=== PATIENT | male | born 1980 | race Caucasian/White ===

== ENCOUNTER 2016-11-18 17:11 | Emergency (ER) | payer MEDICAID ==
[~2016-11-18] VITALS: Ht 175.3 cm; Wt 100.0 kg
[2016-11-18 17:13] VITALS: BP 160/100; PULSE 66; RESP 15; TEMP 98.2; O2SAT 98
--- NOTE | 2016-11-18 17:53 | PD ---
Physical Exam Time Seen by Provider: 17:53 Narrative 36 y/o male here with L wrist pain. Vital signs reviewed. Seen at triage desk. Awaiting bed placement. Data Data Last Documented VS Vital Signs Date Time Temp Pulse Resp B/P Pulse Ox O2 Delivery O2 Flow Rate FiO2 11/18/16 17:13 98.2 66 15 160/100 98 MDM Medical Record Reviewed: Yes Supervised Visit with FRANCESCA: No Brown Knox Nov 18, 2016 17:53
--- NOTE | 2016-11-18 18:47 | PD ---
HPI Chief Complaint: Injury Time Seen by Provider: 18:40 Travel History International Travel<30 days: No Contact w/Intl Traveler<30days: No Traveled to known affect area: No History of Present Illness HPI 36-year-old male presents to the emergency Department with complaint of left wrist pain times to 2-3 days. The pain is coming going on for about a year with re-exacerbation 2 months ago and then in the last 2-3 days. At first the patient denies recent injury or trauma and he changed his story and says he may have injured his hand by slamming his hand down on a bar. Pain is increased with supination and pronation of the hand. 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 Reports pain radiates up his arm at times. Denies paresthesias or loss of sensation to the affected extremity. Reports decreased range of motion at the wrist secondary to pain. Symptoms are mild in severity. Has no other medical complaints. No other modifying factors or associated signs and symptoms. PFSH Social History Tobacco Use: No Allergies-Medications (Allergen,Severity, Reaction): Coded Allergies: Penicillin (Verified Allergy, Unknown, 11/18/16) Reported Meds & Prescriptions Reported Meds & Active Scripts Active Ibuprofen 800 Mg Tab 800 Mg PO Q6HR PRN Review of Systems Except as stated in HPI: all other systems reviewed are Neg Physical Exam Narrative male GENERAL: Well-nourished, well-developed patient, in no acute distress SKIN: Warm and dry. HEAD: Atraumatic. Normocephalic. EYES: Pupils equal and round. No scleral icterus. No injection or drainage. ENT: Mucosa pink and moist. Airway patent. NECK: Trachea midline. CARDIOVASCULAR: Regular rate. RESPIRATORY: No accessory muscle use. GASTROINTESTINAL: Flat. MUSCULOSKELETAL: Left wrist with tenderness on palpation to the medial aspect; without erythema, edema, ecchymosis; mild edema; full range of motion with extension and flexion; decreased range of motion with pronation and supination movements; decreased healthcare administration intern strength; no obvious deformities. Left hand with full range of motion at all joints. Left upper extremity is supple and non- tense with 2+ radial pulse and sensory intact. No obvious deformities. No clubbing. No cyanosis. NEUROLOGICAL: Awake and alert. Oriented 3. No obvious cranial nerve deficits. Motor grossly within normal limits. Normal speech. PSYCHIATRIC: Appropriate mood and affect; insight and judgment normal. Data Data Last Documented VS Vital Signs Date Time Temp Pulse Resp B/P Pulse Ox O2 Delivery O2 Flow Rate FiO2 11/18/16 17:13 98.2 66 15 160/100 98 Orders Wrist, Complete ([id number]) (11/18/16 18:40) Splint Or Brace Apply/Monitor (11/18/16 19:14) Cockup Hand Splint (11/18/16 ) MDM Medical Decision Making Medical Screen Exam Complete: Yes Emergency Medical Condition: Yes Medical Record Reviewed: Yes Differential Diagnosis Carpal Tunnel syndrome, wrist sprain, fracture Narrative Course 36-year-old male with left wrist pain. At first he denied new or recent injury and then he changed his story reporting possible injury. I feel his findings are more consistent with possible carpal tunnel syndrome. I will x-ray the left wrist to rule out fracture. Left wrist x-ray ordered. 1912: Left wrist x-ray concludes: Last 24 hours Impressions Wrist X-Ray 11/18/16 184 Signed Impressions: Service Date/Time: Friday, November 18, 2016 18:50 - CONCLUSION: Unremarkable examination of the left wrist. Isidro Sy MD Velcro wrist splint provided for support. Ibuprofen prescribed for home. Instructed patient to follow up with hand surgeon. Instructed patient to follow up with primary care provider. Patient verbalizes understanding and agreement with treatment plan. Patient is medically cleared and stable for discharge. Discussed reasons to return to the emergency department. Patient agrees with treatment plan. The patients vital signs are stable and the patient is stable for outpatient follow-up and treatment. Patient discharged home, stable and in no acute distress. Diagnosis Primary Impression: Left wrist pain Referrals: Hand Surgeon Primary Care Physician Patient Instructions: Carpal Tunnel Syndrome (ED), General Instructions Departure Forms: Tests/Procedures, Work Release Enter return to work date: Nov 21, 2016 Additional Instructions: Wrist splint for support; can use at night while sleeping Avoid sleeping on your hands to help ease pain and numbness in your wrist and hand Rotate your wrist and stretch your palms and fingers Take a pain reliever, such as Advil, Motrin, ibuprofen, Aleve as needed and as directed Follow-up with primary care provider Return to the emergency department immediately with worsening of symptoms Med/Other Pt SpecificInfo: Prescription(s) given Scripts Ibuprofen 800 Mg Lyg309 Mg PO Q6HR PRN (PAIN) #30 TAB Ref 0 Prov:Mikala Galvan 11/18/16 Disposition: 01 DISCHARGE HOME Condition: Stable Mikala Galvan Nov 18, 2016 18:47
--- NOTE | 2016-11-18 19:07 | RADRPT ---
EXAM DATE/TIME: 11/18/2016 18:50 [facility] COMPARISON: No previous studies available for comparison. INDICATIONS : Left wrist pain. No known injury. MEDICAL HISTORY : None. SURGICAL HISTORY : None. ENCOUNTER: Initial ACUITY: 2 days PAIN SCORE: 8/10 LOCATION: Left upper extremity FINDINGS: Three view examination of the left wrist demonstrates no soft tissue swelling, dislocation, or fractu re. The carpal bones are in normal alignment. The joint spaces are maintained. Bony mineralization is normal. CONCLUSION: Unremarkable examination of the left wrist. Isidro Sy MD on November 18, 2016 at 19:05 Board Certified Radiologist. This report was verified electronically.
[2016-11-18] MEDS ORDERED: IBUP800T23 PO (19:13)
== END 2016-11-18 19:34 | disposition home or self-care (01) ==
LOC: NEPK 17:11
DX: M25.532 Pain in left wrist (principal)
CPT/HCPCS: 73110; 99283; L3908

== ENCOUNTER 2018-01-30 16:46 | Observation (INO) ==
--- NOTE | 2018-01-30 17:10 | ED ---
HPI General Chief Complaint: Chest Pain Stated Complaint: Chest pain/numbness left arm Time Seen by Provider: 01/30/18 17:07 Source: patient Mode of arrival: ambulatory Limitations: no limitations History of Present Illness HPI narrative: 37-year-old male patient presents to the ER today because he states that he has been having intermittent episodes of chest discomfort, currently having a 3 out of 10 substernal chest discomfort rate radiation and tingling down the left arm. He denies any nausea, shortness of breath, or any other symptoms. He does not know of any exacerbating or relieving factors. He states that when it started again he was just worried that it was something worse. Related Data Home Medications Medication Instructions Recorded Confirmed No Known Home Medications 01/30/18 01/30/18 Allergies Allergy/AdvReac Type Severity Reaction Status Date / Time penicillin G Allergy Unknown Unverified 11/25/16 13:27 Review of Systems ROS: all other systems reviewed are negative PMFSH History History Provided By: Patient Social History Social History Substance History: No History of Abuse Second Hand Smoke Exposure: No Smoking Status: Never smoker How Often Do You Have a Drink Containing Alcohol: Never Recent Travel in [facility] within the Last 8 Weeks: No Recent Out of Country Travel within the Last 8 Weeks: No Exam Narrative Exam Narrative: GENERAL: Well-developed middle-age male patient currently in mild distress. Awake and oriented x3. SKIN: Focused skin assessment warm/dry. HEAD: Atraumatic. Normocephalic. EYES: Pupils equal and round. No scleral icterus. No injection or drainage. ENT: No nasal bleeding or discharge. Mucous membranes pink and moist. NECK: Trachea midline. No JVD. CARDIOVASCULAR: Regular rate and rhythm. No murmur appreciated. RESPIRATORY: No accessory muscle use. Clear to auscultation. Breath sounds equal bilaterally. GASTROINTESTINAL: Abdomen soft, non-tender, nondistended. Hepatic and splenic margins not palpable. MUSCULOSKELETAL: No obvious deformities. No clubbing. No cyanosis. No edema. NEUROLOGICAL: Awake and alert. No obvious cranial nerve deficits. Motor grossly within normal limits. Normal speech. PSYCHIATRIC: Appropriate mood and affect; insight and judgment normal. Course Initial Documented Vital Signs Temperature 98.3 F 01/30/18 16:51 Pulse Rate 88 01/30/18 16:51 Respiratory Rate 18 01/30/18 16:51 Blood Pressure 189/88 H 01/30/18 16:51 Pulse Oximetry 96 01/30/18 16:51 Last Documented Vital Signs Temperature 98.3 F 01/30/18 16:51 Pulse Rate 88 01/30/18 16:51 Respiratory Rate 18 01/30/18 16:51 Blood Pressure 152/75 H 01/30/18 17:40 Pulse Oximetry 98 01/30/18 17:40 Medical Decision Making MDM Narrative Medical decision making narrative: EKG shows no signs of acute ST elevations but there are some nonspecific changes notable in the inferior leads. Lab work was otherwise fairly unremarkable. Vital signs are stable. Considering patient 's family history, with mom having early heart disease, plan would be to admit him for further cardiac evaluation in the chest pain center. Medical Screen Exam Complete: Yes Emergency Medical Condition: Yes Differential Diagnosis Differential Diagnosis: ACS versus anxiety attack versus dysrhythmias Lab Data Lab results reviewed: Yes I reviewed the patient's lab results. Result diagrams: 01/30/18 17:14 01/30/18 18:12 Lab Results 01/30/18 01/30/18 Range/Units 17:14 18:12 WBC 4.8 (4.0-11.0) th/mm3 RBC 4.32 L (4.50-5.90) mil/mm3 Hgb 13.7 (13.0-17.0) gm/dL Hct 39.5 (39.0-51.0) % MCV 91.4 (80.0-100.0) fL MCH 31.6 (27.0-34.0) pg MCHC 34.5 (32.0-36.0) % RDW 13.5 (11.6-17.2) % Plt Count 190 (150-450) th/mm3 MPV 9.6 (7.0-11.0) fL Neut % (Auto) 63.9 (16.0-70.0) % Lymph % (Auto) 25.6 (9.0-44.0) % [place]ether % (Auto) 6.6 (0.0-8.0) % Eos % (Auto) 2.5 (0.0-4.0) % Baso % (Auto) 1.4 (0.0-2.0) % Neut # (Auto) 3.1 (1.8-7.7) th/mm3 Lymph # (Auto) 1.2 (1.0-4.8) th/mm3 [place]ether # (Auto) 0.3 (0.0-0.9) th/mm3 Eos # (Auto) 0.1 (0.0-0.4) th/mm3 Baso # (Auto) 0.1 (0.0-0.2) th/mm3 WBC Differential . Differential Comment Auto diff final Sodium 139 (136-145) meq/L Potassium 3.9 (3.5-5.1) meq/L Chloride 104 (98-107) meq/L Carbon Dioxide 26.6 (21.0-32.0) meq/L Anion Gap 8 (5-15) meq/L BUN 14 (7-18) mg/dL Creatinine 0.99 (0.60-1.30) mg/dL Estimated GFR 85 L (>89) mL/min Random Glucose 103 (74-106) mg/dL Calcium 8.5 (8.5-10.1) mg/dL Total Bilirubin 0.4 (0.2-1.0) mg/dL AST 26 (15-37) U/L ALT 73 (12-78) U/L Alkaline Phosphatase 56 (45-117) U/L Troponin I Less than 0.02 L (0.02-0.05) ng/mL Total Protein 7.9 (6.4-8.2) g/dL Albumin 4.0 (3.4-5.0) g/dL Imaging Data Attestation: I personally reviewed and interpreted this imaging study as follows : Radiologist's impression: Chest X-Ray 01/30/18 17:07 CONCLUSION: Negative examination. ECG Data Attestation: I personally reviewed and interpreted this ECG as follows: Interpretation: EKG shows NSR, no ST elevation or depression, and no arrhythmias. No significant T-wave inversions. Discharge Plan Discharge Disposition Patient Disposition: 30 Still Patient Discharge Condition Condition: Stable Discharge Details Anticipated Discharge Date: 01/30/18 Diagnosis: Atypical chest pain Physicians Team ED Provider: Amol Plummer Primary Care Provider: UNKNOWN, Rxs /Orders / Referrals /Forms Prescriptions: No Action No Known Home Medications RF: 0 Discharge Instructions Patient Printed Instructions: Chest Pain (ED) Discharge Interventions Interventions: Vital Signs Last Done: 01/30/18 16:51 Status ED Status: With Doctor
[2018-01-30 17:28] LABS: Baso # (Auto) 0.1 th/mm3 (0.0-0.2); Baso % (Auto) 1.4 % (0.0-2.0); Eos # (Auto) 0.1 th/mm3 (0.0-0.4); Eos % (Auto) 2.5 % (0.0-4.0); Hematocrit 39.5 % (39.0-51.0); Hemoglobin 13.7 gm/dL (13.0-17.0); Lymph # (Auto) 1.2 th/mm3 (1.0-4.8); Lymph % (Auto) 25.6 % (9.0-44.0); Mean Corpuscular HGB Conc 34.5 % (32.0-36.0); Mean Corpuscular Hemoglobin 31.6 pg (27.0-34.0); Mean Corpuscular Volume 91.4 fL (80.0-100.0); Mean Platelet Volume 9.6 fL (7.0-11.0); Mono # (Auto) 0.3 th/mm3 (0.0-0.9); Mono % (Auto) 6.6 % (0.0-8.0); Neut # (Auto) 3.1 th/mm3 (1.8-7.7); Neut % (Auto) 63.9 % (16.0-70.0); Platelet Count 190 th/mm3 (150-450); Red Blood Count 4.32 mil/mm3 (4.50-5.90); Red Cell Distribution Width 13.5 % (11.6-17.2); White Blood Count 4.8 th/mm3 (4.0-11.0)
--- NOTE | 2018-01-30 17:29 | XR ---
EXAM DATE: 01/30/2018 5:07 PM EDT AGE/SEX: 37 years / Male INDICATIONS: Chest pain. CLINICAL DATA: This is the patient's initial encounter. Patient reports that signs and symptoms have been present for 1 day and indicates a pain score of 4/10. MEDICAL/SURGICAL HISTORY: None. None. COMPARISON: None. FINDINGS: A single AP view of the chest demonstrates the lungs to be symmetrically aerated without evidence of mass, infiltrate or effusion. The cardiomediastinal contours are unremarkable. Osseous structures a re intact. CONCLUSION: Negative examination. Electronically signed by: Eduard Pino MD 01/30/2018 5:28 PM EDT
[2018-01-30 18:35] LABS: Anion Gap 8 meq/L (5-15); Aspartate Aminotransferase 26 U/L (15-37); Blood Urea Nitrogen 14 mg/dL (7-18); Calcium 8.5 mg/dL (8.5-10.1); Carbon Dioxide 26.6 meq/L (21.0-32.0); Chloride 104 meq/L (98-107); Glomerular Filtration Rate 85 mL/min (>89); Glucose,Random 103 mg/dL (74-106); Potassium 3.9 meq/L (3.5-5.1); Sodium 139 meq/L (136-145)
[2018-01-30 18:41] LABS: Alanine Aminotransferase 71 U/L (12-78); Alkaline Phosphatase 59 U/L (45-117); Total Protein 7.8 g/dL (6.4-8.2)
[2018-01-30 22:40] LABS: Creatine Kinase 253 U/L (39-308)
[2018-01-31 04:03] LABS: Creatine Kinase 252 U/L (39-308)
[2018-01-31 08:01] VITALS: BP 152/72; PULSE 51; RESP 16; TEMP 98
[2018-01-31 08:19] VITALS: O2SAT 98
--- NOTE | 2018-01-31 09:31 | P.HPCA ---
History of Present Illness Service: Chest pain center Primary Care Physician: UNKNOWN None Chief Complaint: Palpitations chest discomfort History of Present Illness: 37-year-old gentleman who moved to [place] from [place] when he about a year ago. Subsequently lost his job about a month ago shortly after his delivered their first baby. Is currently living on savings but extremely worried about his financial situation particularly with the . He admits to high stress and anxiety. However recently he has been having some episodes of tachycardia. These have created increased anxiety and subsequently were associated with a sense of tightness in his chest. These episodes generally last for seconds but sometimes for minutes. The discomfort is described at 3 out of 10 sometimes is tightness and sometimes this is a hot feeling in his chest. One episode he noticed it seemed to involve his left arm with tingling and numbness. He also thinks he may have been a little short of breath but not sure if this was just due to his anxiety. He was seen at a walk- in clinic and told that his EKG was abnormal and he should go directly to the emergency room. This height and his anxiety considerably. This EKG was reviewed personally and is entirely normal. He has gained weight over the last year but has been recently working out at the gym. Is non-smoker nondrinker and essentially previously been healthy. Review of Systems All other systems reviewed negative except as stated in HPI PMFSH - History History Provided By: Patient - Medical History Medical History: Medical History (Last Reviewed 01/30/18 @ 17:09 by Amol Plummer MD) Medical history unknown Patient denies medical problems - Surgical History Surgical History: Surgical History (Last Reviewed 01/30/18 @ 17:09 by Amol Plummer MD) No history of previous surgery - Tobacco History Second Hand Smoke Exposure: No Tobacco Use In Past 30 Days: No Smoking Status: Never smoker - Alcohol History How Often Do You Have a Drink Containing Alcohol: Monthly or less - Substance Use History Substance History: No History of Abuse - Travel History Recent Travel in the [place] Within the Last 8 Weeks: No Recent Travel Out of the Country Within the Last 8 Weeks: No - Immunization History Tetanus Immunization: Unsure Medications and Allergies Active Medications: Active Medications Sodium Chloride (Ns Flush) 2 ml IV.FLUSH UNSCH PRN PRN Reason: FLUSH AFTER USING IV ACCESS Sodium Chloride (Ns Flush) 2 ml IV.FLUSH BID KELSIE Last Admin: 01/30/18 23:23 Dose: 2 ml Sodium Chloride (Ns Flush) 2 ml IV.FLUSH PRN PRN PRN Reason: FLUSH AFTER USING IV ACCESS Allergies Allergy/AdvReac Type Severity Reaction Status Date / Time penicillin G Allergy Unknown Unverified 11/25/16 13:27 Home Medications Medication Instructions Recorded Confirmed Type No Known Home Medications 01/30/18 01/30/18 History Exam Vital signs: Vital Signs 01/30/18 16:51 01/30/18 17:17 01/30/18 17:40 Temperature 98.3 F Pulse Rate 88 Respiratory Rate 18 Blood Pressure 189/88 H 152/75 H Pulse Oximetry 96 96 98 01/30/18 18:40 01/30/18 18:55 01/30/18 20:00 Temperature 98.2 F Pulse Rate 59 L 65 Respiratory Rate 16 18 20 Blood Pressure 147/67 H 140/85 Pulse Oximetry 97 97 93 L 01/30/18 23:43 01/31/18 03:28 01/31/18 08:00 Temperature 97.9 F 97.8 F 98.0 F Pulse Rate 60 62 51 L Respiratory Rate 19 20 16 Blood Pressure 134/77 149/80 H 152/72 H Pulse Oximetry 95 98 96 01/31/18 08:19 Temperature Pulse Rate Respiratory Rate Blood Pressure Pulse Oximetry 98 Intake & Output 01/30/18 01/31/18 01/31/18 18:59 06:59 18:59 Weight 121.109 kg 121.1 kg Other: # Voids 1 Narrative: Well-nourished well-developed somewhat obese 37-year-old man resting in bed. Skin warm and dry Head normocephalic atraumatic Eyes PERRLA EOMI sclera clear Mouth mucous membranes moist and well papillated no lesions Neck supple no JVD masses nodes or bruits Chest clear to auscultation with no rales wheezes or rhonchi and no significant tenderness Cardiovascular PMI is not displaced there is a regular sinus rhythm no gallop rub or murmur Psychiatric good judgment memory affect appear to be normal although he is clearly somewhat anxious Results 01/30/18 17:14 01/30/18 18:12 Cardiac Enzymes 01/30/18 01/30/18 01/31/18 Range/Units 18:12 21:45 03:00 AST 26 (15-37) U/L Troponin I Less than 0.02 L Less than 0.02 L Less than 0.02 L (0.02-0.05) ng/mL CBC 01/30/18 Range/Units 17:14 WBC 4.8 (4.0-11.0) th/mm3 RBC 4.32 L (4.50-5.90) mil/mm3 Hgb 13.7 (13.0-17.0) gm/dL Hct 39.5 (39.0-51.0) % Plt Count 190 (150-450) th/mm3 Neut # (Auto) 3.1 (1.8-7.7) th/mm3 Lymph # (Auto) 1.2 (1.0-4.8) th/mm3 Centre # (Auto) 0.3 (0.0-0.9) th/mm3 Eos # (Auto) 0.1 (0.0-0.4) th/mm3 Baso # (Auto) 0.1 (0.0-0.2) th/mm3 Comprehensive Metabolic Panel 01/30/18 Range/Units 18:12 Sodium 139 (136-145) meq/L Potassium 3.9 (3.5-5.1) meq/L Chloride 104 (98-107) meq/L Carbon Dioxide 26.6 (21.0-32.0) meq/L BUN 14 (7-18) mg/dL Creatinine 0.99 (0.60-1.30) mg/dL Calcium 8.5 (8.5-10.1) mg/dL AST 26 (15-37) U/L ALT 71 (12-78) U/L Alkaline Phosphatase 59 (45-117) U/L Total Protein 7.8 (6.4-8.2) g/dL Albumin 4.0 (3.4-5.0) g/dL Intake and Output 01/30/18 01/31/18 01/31/18 22:59 06:59 14:59 Other: # Voids 1 Weight 121.109 kg 121.1 kg - Imaging and Cardiology Imaging: Impressions Chest X-Ray 01/30/18 17:07 CONCLUSION: Negative examination. EKG interpretations - EKG EKG results cardiology: WNL Caprini VTE Risk Assessment Caprini VTE Risk Assessment: No/Low Risk (score <= 1) Caprini Risk Assessment Model: Point Value = 1 Point Value = 2 Point Value = 3 Point Value = 5 Age 41-60 Minor surgery BMI > 25 kg/m2 Swollen legs Varicose veins or History of unexplained or recurrent spontaneous Oral contraceptives or hormone replacement Sepsis (< 1 month) Serious lung disease, including pneumonia (< 1 month) Abnormal pulmonary function Acute myocardial infarction Congestive heart failure (< 1 month) History of inflammatory bowel disease Medical patient at bed rest Age 61-74 Arthroscopic surgery Major open surgery (> 45 min) Laparoscopic surgery (> 45 min) Malignancy Confined to bed (> 72 hours) Immobilizing plaster cast Central venous access Age >= 75 History of VTE Family history of VTE Factor V Leiden Prothrombin [id number] Lupus anticoagulant Anticardiolipin antibodies Elevated serum homocysteine Heparin-induced thrombocytopenia Other congenital or acquired thrombophilia Stroke (< 1 month) Elective arthroplasty Hip, pelvis, or leg fracture Acute spinal cord injury (< 1 month) Prophylaxis Regimen: Total Risk Factor Score Risk Level Prophylaxis Regimen 0-1 Low Early ambulation 2 Moderate Order ONE of the following: *Sequential Compression Device (SCD) *Heparin 5000 units SQ BID 3-4 Higher Order ONE of the following medications: *Heparin 5000 units SQ TID *Enoxaparin/Lovenox 40 mg SQ daily (WT < 150 kg, CrCl > 30 mL/min) *Enoxaparin/Lovenox 30 mg SQ daily (WT < 150 kg, CrCl > 10-29 mL/min) *Enoxaparin/Lovenox 30 mg SQ BID (WT < 150 kg, CrCl > 30 mL/min) AND/OR *Sequential Compression Device (SCD) 5 or more Highest Order ONE of the following medications: *Heparin 5000 units SQ TID (Preferred with Epidurals) *Enoxaparin/Lovenox 40 mg SQ daily (WT < 150 kg, CrCl > 30 mL/min) *Enoxaparin/Lovenox 30 mg SQ daily (WT < 150 kg, CrCl > 10-29 mL/min) *Enoxaparin/Lovenox 30 mg SQ BID (WT < 150 kg, CrCl > 30 mL/min) AND *Sequential Compression Device (SCD) Assessment and Plan - Plan Patient has atypical symptoms with some palpitations and tachycardia possibly related to anxiety and vague chest discomfort associated. He is ruled out for ACS normal lab enzymes and EKG. If negative he will be discharged to further follow-up on outpatient basis. Code Status: Full code H&P: Quality - VTE Deep Vein Thrombosis/Pulmonary Embolism Present on Admission: No
--- NOTE | 2018-01-31 11:34 | ECG ---
Date Performed: 01/30/2018 Time Performed: 21:58:12 PTAGE: 37 years EKG: SINUS BRADYCARDIA BORDERLINE ECG PREVIOUS TRACING : 01/30/2018 19.16 DOCTOR: Edison Donis Interpretating Date/Time 01/31/2018 11:32:07
--- NOTE | 2018-01-31 22:19 | ECG ---
Date Performed: 01/30/2018 Time Performed: 19:16:47 PTAGE: 37 years EKG: Sinus rhythm NORMAL ECG Since the PREVIOUS TRACING , no significant change noted DOCTOR: Fran Hwang Interpretating Date/Time 01/31/2018 22:19:07
--- NOTE | 2018-01-31 22:26 | ECG ---
Date Performed: 01/30/2018 Time Performed: 17:03:57 PTAGE: 37 years EKG: Sinus rhythm WITH OCCASIONAL VENTRICULAR PREMATURE COMPLEXES ABNORMAL ECG NO PREVIOUS TRACING DOCTOR: Fran Hwang Interpretating Date/Time 01/31/2018 22:25:01
--- NOTE | 2018-02-01 14:08 | TR ---
Date Performed: 01/31/2018 Time Performed: 10:22:20 DOCTOR: Bk Julian DRUG LIST: CLINICAL HISTORY: CHEST PAIN REASON FOR TEST: Chest pain REASON FOR ENDING: OBSERVATION: CONCLUSION: Juanpablo protocol completed. Stopped sec to exceeding target heart rate and leg fatigue . Maximum OX=625 Max HR Achieved=88.0% Maximum RL=004/90 Total Exercise Time=9:38. No reprod chest d iscomfort. Infrequent PVC, 1 set couplet stage 3. Normal bp response.Great exercise tolerance. St t u nchanged, nondiagnostic. Recovery quick and unremarkable. COMMENTS: Patient exercised using the Juanpablo protocol. No electrocardiographic changes were seen to suggest ischemia. Hemodynamic response to exercise was normal. No significant arrhythmia was prese nt.
== END 2018-01-31 11:56 | disposition home or self-care (01) ==
LOC: NEPE 16:46 → NEDA 16:46 → NEPHCDU 20:03
PROVIDERS: ADMIT Internal Medicine Interventional Cardiology; ATTEND Internal Medicine Interventional Cardiology